=== PATIENT | female | born 1995 | race Hispanic/Latino ===

== ENCOUNTER 2022-08-27 13:53 | Emergency (ER) | payer MEDICAID ==
[~2022-08-27] VITALS: Ht 160 cm; Wt 71.2 kg
[2022-08-27 14:10] VITALS: BP 108/60
[2022-08-27] MEDS ORDERED: PERM60CR4 TP (14:19)
== END 2022-08-27 14:25 | disposition home or self-care (01) ==
LOC: EDH 13:53
DX: B86 Scabies (principal); Z90.49 Acquired absence of other specified parts of digestive tract; Z98.890 Other specified postprocedural states
CPT/HCPCS: 99282

== ENCOUNTER 2024-12-12 23:59 | Emergency (ER) | payer SELFPAY ==
[~2024-12-12] VITALS: Ht 157.5 cm; Wt 70.3 kg
[~2024-12-12 23:59] MED LIST: PERM60CR4 TP
--- NOTE | 2024-12-13 00:03 | NUR ---
UUA CUP PROVIDED
--- NOTE | 2024-12-13 00:05 | NUR ---
REPORT TO SANDHYA FARR
[2024-12-13] MEDS ORDERED: cefTRIAXone 1G VIAL IVPB ONE (00:30)
[2024-12-13] MEDS: acetaMINOPHEN 500 MG TABLET PO ONE (00:56)
[2024-12-13] MEDS: cefTRIAXone 1G VIAL IM ONE (00:56)
[2024-12-13 01:00] LABS: HCG,QUALITATIVE URINE NEGATIVE (NEGATIVE)
[2024-12-13] MEDS: LIDOCAINE HCL 1% 20 ML VIAL ONE (01:01)
[2024-12-13 01:05] LABS: APPEARANCE,URINE CLEAR (CLEAR); BILIRUBIN,URINE NEGATIVE (NEGATIVE); COLOR,URINE LIGHT-YELLOW (YELLOW); GLUCOSE, URINE (UA) NEGATIVE (NEGATIVE); KETONES,URINE NEGATIVE (NEGATIVE); LEUKOCYTE ESTERASE ,URINE NEGATIVE Leu/uL (NEGATIVE); NITRATE,URINE NEGATIVE (NEGATIVE); PH,URINE 5.5 (5.0-8.0); PROTEIN,URINE NEGATIVE (NEGATIVE)
[2024-12-13 01:06] LABS: ADD UA MICROSCOPIC YES
--- NOTE | 2024-12-13 01:06 | ERN ---
ED Note History of Present Illness Stated Complaint: ABD PAIN, VAGINAL DISCHARGE Chief Complaint: Multiple Complaints Time Seen by MD: 00:03 Time Seen by Midlevel: 00:03 Dictation: The patient is a 29-year-old female with a history of cholecystectomy, tubal ligation who presents to the emergency department with complaints of suprapubic abdominal pain associated with green vaginal discharge onset three days ago. Patient reports she has one sexual partner. Denies any fevers, nausea vomiting or diarrhea. Denies a vaginal bleeding or hematuria. Allergies: Coded Allergies: No Known Drug Allergies (Unverified Allergy, Unknown, 08/27/22) Home Meds Active Scripts Doxycycline Hyclate (Doxycycline Hyclate) 100 Mg Capsule, 1 CAP PO BID for 7 Days, #14 CAP 0 Refills Prov:PORTER FONSECA EP TECH 12/13/24 Permethrin (Permethrin) 60 Gm Cream..g., 60 GM TP ONCE for 1 Day, #1 TUBE Prov:REGINO PENG LATEX DIPPER 08/27/22 Past Medical History Past Medical History: No Pertinent History Surgical History: Tonsillectomy, Cholecystectomy, Other Surgical History Other: CYST REMOVAL LMP: November 13, 2024 : 5 Para: 5 RN Note Reviewed/Agreed w/PFSH: Yes Review of System Dictation Constitutional: Negative for fever,chills, and weight loss Eyes: Negative for injury, pain,redness, and discharge ENT: Negative for injury,pain or swelling Cardiovascular: Negative for chest pain, palpitations, and edema Respiratory: Negative for shortness of breath, cough, and wheezing, Abdomen/GI: Negative for nausea, vomiting, diarrhea, and constipation positive for suprapubic pain Back: Negative for injury and pain : Positive for vaginal discharge MS/Extremity: Negative for injury and deformity Skin: Negative for rash, and discoloration Neuro: Negative for headache, weakness, numbness, tingling, and seizure Psych: Negative for suicide ideation, homicidal ideation, and hallucinations Initial Vital Sign VS Vital Signs Date Time Temp Pulse Resp B/P (MAP) Pulse Ox O2 Delivery O2 Flow Rate FiO2 12/13/24 00:01 98.1 87 18 113/68 98 Room Air 12/13/24 01:06 0 21 Physical Exam Dictation Vital Signs reviewed General Appearance: Alert, oriented x 3, no acute distress, well developed, nourished. Head and Face: non-traumatic. Eyes: PERRL, pink conjunctivas, eyelid no trauma, anterior chamber with arcus senilis. Ears: Pinnas intact and no signs of trauma or erythema ear canals clear and no discharge TM no erythema Nose: No discharge, no bleeding. Oropharynx: Mouth normal, tongue pink. pharynx clear,no erythema, tonsils no exudates, no abscesses noted, mucous membrane moist Neck: Supple, non-tender, no thyromegaly, no masses, no JVD, no bruits Breast:Deferred Chest:No tenderness, no crepitus, no paradoxical movement, no retractions Lungs:Clear, well-ventilated, symmetric, no rales, no wheezing, no rhonchi, no stridor, good breath sounds bilaterally Heart: Regular rate, regular rhythm, no murmur, no gallops Vascular: no peripheral edema, Abdomen: Soft, positive bowel sounds, nondistended, no guarding, nontender, no rebound, no masses no hepatomegaly, no splenomegaly, no Andre's sign, no hernias. Rectal: Deferred Genital: Deferred Neurological: Normal speech, motor function intact, sensory function intact Musculoskeletal: Neck nontender, full range of motion, back nontender, full range of motion, Extremities: nontender, full range of motion Skin: Color pink, dry, no turgor, no rash, no lacerations, no abrasions, no contusions. Lymphatic: Deferred Results (Laboratory/Radiology) Laboratory/Radiology Laboratory Tests Test 12/13/24 00:46 Urine Color LIGHT-YELLOW (YELLOW) Urine Appearance CLEAR (CLEAR) Urine pH 5.5 (5.0-8.0) Urine Specific Shell 1.027 (1.001-1.031) Urine Protein NEGATIVE mg/dL (NEGATIVE) Urine Glucose (UA) NEGATIVE mg/dL (NEGATIVE) Urine Ketones NEGATIVE mg/dL (NEGATIVE) Urine Occult Blood +- (TRACE) (NEGATIVE) H Urine Nitrate NEGATIVE (NEGATIVE) Urine Bilirubin NEGATIVE mg/dL (NEGATIVE) Urine Urobilinogen 2.0 mg/dL (0.2-1.0) H Urine Leukocyte Esterase NEGATIVE Sly/uL Urine RBC 2-5 /HPF (0-1) H Urine WBC 2-5 /HPF (0-1) H Urine Squamous Epithelial Cells FEW /HPF (0-2) Urine Bacteria FEW /HPF (None Seen) Urine HCG, Qualitative NEGATIVE (NEGATIVE) Labs Reviewed?: Yes ED Course ED Course Orders Procedure Category Date Status Time Urinalysis Profile LAB 12/13/24 Complete 00:27 ,Urine Test LAB 12/13/24 Complete 00:27 Chlamydia & Gc Pcr SAVITA 12/13/24 In Process 00:27 Ceftriaxone 1g Vial PHA 12/13/24 Complete (Rocephine 1g Inj) 00:30 Acetaminophen 500mg PHA 12/13/24 Complete Tab (Tylenol 500mg T 00:30 Ceftriaxone 1g Vial PHA 12/13/24 Complete (Rocephine 1g Inj) 01:00 Lidocaine Hcl 1% 20ml PHA 12/13/24 Complete Vial (Lidocaine Hc 00:53 Current Medications Medications (Trade) Dose Ordered Sig/Dawood Route PRN Reason Start Time Stop Time Status Last Admin Dose Admin Acetaminophen (TYLenol 500MG TAB) 1,000 mg ONCE ONCE PO 12/13/24 00:30 12/13/24 00:31 DC 12/13/24 00:56 Ceftriaxone Sodium (ROCEphine 1G INJ) 1 gm ONCE ONCE IM 12/13/24 01:00 12/13/24 01:01 DC 12/13/24 00:56 Ceftriaxone Sodium (ROCEphine 1G INJ) 1 gm ONCE ONCE IVPB 12/13/24 00:30 12/13/24 00:47 DC Lidocaine HCl (Lidocaine HCl 1% 20ml Vial) 20 ml STK-MED ONCE .ROUTE 12/13/24 00:53 12/13/24 00:53 DC 12/13/24 01:01 Vital Signs Date Time Temp Pulse Resp B/P (MAP) Pulse Ox O2 Delivery O2 Flow Rate FiO2 12/13/24 01:34 98.2 68 15 106/59 100 Room Air* 0 21 12/13/24 01:06 66 15 129/70 100 Room Air* 0 21 12/13/24 00:01 98.1 87 18 113/68 98 Room Air Medical Decision Making MDM The patient is a 29-year-old female with a history of cholecystectomy, tubal ligation who presents to the emergency department with complaints of suprapubic abdominal pain associated with green vaginal discharge onset three days ago. Patient reports she has one sexual partner. Denies any fevers, nausea vomiting or diarrhea. Denies a vaginal bleeding or hematuria. Urinalysis showed scant wbc, no leukocyte esterase, no nitrates. gonorrhea and chlamydia cultures sent. We will treat patient due to symptoms. Patient with no fever, nausea vomiting or diarrhea. On physical exam patient is in no acute distress, stable vital signs. Agrees to black pickler prescription at pharmacy. Differential diagnosis:STD, UTI, dysuria. Need for hospitalization: Patient does not meet criteria for hospitalization. There are no social concerns with this patient. DX & DISP Disposition: Discharge Departure Impression: Primary Impression: Possible exposure to STD Additional Impression: Dysuria Condition: Stable Scripts Doxycycline Hyclate (Doxycycline Hyclate) 100 Mg Capsule 1 CAP PO BID for 7 Days, #14 CAP 0 Refills Prov: PORTER FONSECA 12/13/24 Additional Instructions: Please follow up with you pcp for full STD panel. Take your medications as prescribed. Avoid any sexual activity until you are treated and partners should be treated as well. Follow up on you cultures. If anything worsen please return to ER. FOLLOW-UP WITH PRIMARY CARE PROVIDER IN 1 TO 2 DAYS. TAKE MEDICATIONS DIRECTED HERE IN THE EMERGENCY ROOM. OKAY TO CONTINUE HOME MEDICATIONS UNLESS OTHERWISE DISCUSSED DURING YOUR VISIT IN THE EMERGENCY ROOM TODAY. RETURN TO YOUR NEAREST EMERGENCY ROOM IF SYMPTOMS WORSEN OR IF THERE IS NO IMPROVEMENT. CALL 911 IF YOU NEED IMMEDIATE ASSISTANCE. TAKE TYLENOL [id number] NEEDED AND IF NO CONTRAINDICATIONS ARE PRESENT. INCREASE ORAL HYDRATION. A WOUND CULTURE OR URINE CULTURE WAS ORDERED HERE IN THE EMERGENCY ROOM DEPARTMENT PLEASE FOLLOW-UP WITH PRIMARY CARE PROVIDER AND ADVISE THEM TO GET REPEAT PORTS FROM OUR FACILITY. IF YOU HAD ANY CIPRIANO WRAP/SPLINTS THAT WERE APPLIED HERE, PLE ASE DO NOT REMOVE THEM UNTIL YOU SEE YOUR PRIMARY CARE OR SPECIALTY. Referrals: SELF,REFERRAL (PCP) Time of Disposition: 01:18 I have reviewed the case, and I agree with, Diagnosis and Plan PORTER FONSECA Dec 13, 2024 01:06 VERA RAJPUT DO Dec 13, 2024 04:15
[2024-12-13 01:10] LABS: BACTERIA,URINE FEW /HPF (None Seen); MUCUS,URINE RARE LPF (None Seen); SQUAMOUS EPITHELIAL CELL,UR FEW /HPF (0-2)
[2024-12-13] MEDS ORDERED: DOXY100C5 PO (01:26)
[2024-12-13 01:34] VITALS: BP 106/59; PULSE 68; RESP 15; TEMP 98.3; O2SAT 100
== END 2024-12-13 01:38 | disposition home or self-care (01) ==
LOC: EDH 23:59
DX: R30.0 Dysuria (principal); Z20.2 Contact with and (suspected) exposure to infections with a predominantly sexual mode of transmission; Z90.49 Acquired absence of other specified parts of digestive tract; Z90.89 Acquired absence of other organs
CPT/HCPCS: 99283; 87491; 87591; 81001; 81025; 96372; J0696